=== PATIENT | female | born 1960 | race Caucasian/White ===

== ENCOUNTER → 2016-08-24 | Outpatient (CLI) | payer OTHER ==
[~2016-08-24] MED LIST: CIPR-255 PO; IBUP-1428 PO
--- NOTE | 2016-08-24 13:03 | DIAGNOSTIC IMAGING REPORT ---
RIGHT FOOT MIN 3 VIEWS ROUTINE CLINICAL HISTORY: Right foot pain COMPARISON: None. DISCUSSION: No fractures or dislocations are visualized. There are no erosive or destructive changes. There is a plantar calcaneal spur. IMPRESSION: 1. No acute fractures 2. Plantar calcaneal spur Electronically signed by: Sherwin Reardon M.D. 08/24/2016 1:02 PM Dictated Date/Time: 08/24/2016 1:01 PM
== END | disposition home or self-care (01) ==
LOC: C.RAD1850 11:00
PROVIDERS: ATTEND Physician Assistant
DX: M79.671 Pain in right foot (principal); M77.31 Calcaneal spur, right foot

== ENCOUNTER → 2016-09-03 | Outpatient (CLI) | payer OTHER ==
--- NOTE | 2016-09-04 12:36 | MAMMOGRAPHY REPORT ---
BILATERAL DIGITAL SCREENING MAMMOGRAM TOMOSYNTHESIS WITH CAD: 09/03/2016 CLINICAL HISTORY: Routine screening. Patient has no complaints. TECHNIQUE: Breast tomosynthesis in addition to standard 2D mammography was performed. Current study was also evaluated with a Computer Aided Detection (CAD) system. COMPARISON: Comparison is made to exams dated: 04/28/2012 mammogram, 04/23/2011 mammogram, 04/22/2010 mammogram, 04/10/2009 mammogram - [facility], 04/09/2008, and 07/23/2004 mammogram - [facility]. BREAST COMPOSITION: There are scattered areas of fibroglandular density in both breasts. FINDINGS: No suspicious masses, calcifications, or areas of architectural distortion are noted in e ither breast. There has been no significant interval change compared to prior exams. IMPRESSION: ACR BI-RADS CATEGORY 1: NEGATIVE There is no mammographic evidence of malignancy. A 1 year screening mammogram is recommended. The p atient will receive written notification of the results. Approximately 10% of breast cancers are not detected with mammography. A negative mammographic repor t should not delay biopsy if a clinically suggestive mass is present. Gege Clifford M.D. ah/:09/04/2016 07:13:30 Cv Tech: Tawnya CAMPBELLR M, [facility] letter sent: Normal 1/2 BI-RADS Code: ACR BI-RADS Category 1: Negative
== END | disposition home or self-care (01) ==
LOC: C.MAMM 12:59
PROVIDERS: ATTEND Physician Assistant
DX: Z12.31 Encounter for screening mammogram for malignant neoplasm of breast (principal)

== ENCOUNTER → 2017-01-08 | Outpatient (CLI) | payer OTHER | END | disposition home or self-care (01) | LOC: C.PAPS 07:46 | PROVIDERS: ATTEND Physician Assistant | DX: Z01.419 Encounter for gynecological examination (general) (routine) without abnormal findings (principal) ==

== ENCOUNTER → 2017-01-08 | Outpatient (CLI) | payer OTHER | END | disposition home or self-care (01) | LOC: C.LABSPEC 08:37 | PROVIDERS: ATTEND Physician Assistant | DX: R30.0 Dysuria (principal) ==

== ENCOUNTER → 2017-05-11 | Outpatient (CLI) | payer OTHER ==
[2017-05-11 10:33] LABS: ALKALINE PHOSPHATASE 117 U/L (45-117); ALT/SGPT 103 U/L (12-78); AST/SGOT 50 U/L (15-37); CHOLESTEROL 148 mg/dl (0-200); CHOLESTEROL/HDL RATIO 2.9; HDL CHOLESTEROL 51 mg/dl; LDL CHOLESTEROL CALCULATED 84 mg/dl; TRIGLYCERIDES 66 mg/dl (0-150); VERY LOW DENSITY LIPOPROT CALC 13 mg/dl
[2017-05-11 10:39] LABS: BLOOD UREA NITROGEN 15 mg/dl (7-18); BUN/CREATININE RATIO 20.1 (10-20); CARBON DIOXIDE 30 mmol/L (21-32); CHLORIDE 103 mmol/L (98-107); CREATININE 0.75 mg/dl (0.60-1.20); GLUCOSE 98 mg/dl (70-99); POTASSIUM 4.3 mmol/L (3.5-5.1); SODIUM 135 mmol/L (136-145)
== END | disposition home or self-care (01) ==
LOC: C.LAB1850 09:17
PROVIDERS: ATTEND Internal Medicine
DX: Z13.220 Encounter for screening for lipoid disorders (principal); K76.0 Fatty (change of) liver, not elsewhere classified; Z13.1 Encounter for screening for diabetes mellitus

== ENCOUNTER 2023-09-07 12:15 | Inpatient (IN) ==
--- NOTE | 2023-09-07 12:42 | Emergency Department Note ---
History of Present Illness General Chief complaint: Chest Pain Stated complaint: CHEST PAIN, REF BY DOC Time Seen by Provider: 09/07/23 12:21 History of Present Illness Maximum Pain Intensity: 2 This is a 63-year-old female that presents to the emergency department via private vehicle with complaints of "chest pain". The patient notes that yesterday while hiking around 10:30 AM she began with chest pain. This does seem to be exertional. She states that when she finished the hiking she felt flushed, and then noticed the heaviness across the chest region. She also feels some anxiety with this. Current pain 08/31. No history of similar. She also felt some shortness of breath. No preceding fevers, chills, nausea or vomiting. She does note some discomfort in the bilateral jaws. Also notes discomfort in the bilateral anterior shoulders. No pain radiating into the back. She does note recent ED visit here this past Wednesday for UTI and is taking the antibiotics as prescribed. She has been taking cephalexin. She denies any history of SC or PE. She notes that she slept well last night and woke up today thinking that her symptoms had resolved but unfortunately they have not returned. The pain is intermittent and seems to last for variable durations. She also feels her heart rate is elevated during the time where the pain is present. Home Medications Medication Instructions Recorded Confirmed Type prochlorperazine maleate 5 mg 5 mg PO UD PRN Nausea 08/27/20 09/07/23 History tablet (Compazine) albuterol sulfate 90 mcg/actuation 2 puff inhalation Q4H PRN 01/12/23 09/07/23 Rx aerosol inhaler shortness of breath #6.7 grams Azo Urinary Pain Relief See Rx Instructions .Route 09/04/23 09/07/23 History .COMPLEX PRN Other Tums See Rx Instructions .Route 09/04/23 09/07/23 History .COMPLEX PRN Other cephalexin 500 mg capsule 500 mg PO Q6H 10 days #40 caps 09/04/23 09/07/23 Rx fluticasone 250 mcg-salmeterol 50 1 inh inhalation BID PRN Other 09/04/23 09/07/23 History mcg/dose blistr powdr for inhalation (Wixela Inhub) polyethylene glycol 3350 17 17 g PO DAILY PRN Constipation 09/04/23 09/07/23 History gram/dose oral powder (Miralax) Allergies Allergy/AdvReac Type Severity Reaction Status Date / Time bee venom protein (honey bee) Allergy Severe anaphylaxis Verified 03/01/23 13:31 aspirin Allergy Intermediate HIVES Verified 03/01/23 13:31 Penicillins Allergy Intermediate HIVES Verified 03/01/23 13:31 Sulfa (Sulfonamide Allergy Intermediate HIVES Verified 03/01/23 13:31 Antibiotics) alcohol Allergy Mild "gets Verified 03/01/23 13:31 stuffy and sneezes when she drinks alcohol" erythromycin base Allergy Mild upset Verified 03/01/23 13:31 stomach Past Med/Surg History Medical History Plantar fasciitis Neck tightness Abrasion of skin of left lower leg Epigastric discomfort Screening for lipid disorders Joint pain Gastritis Medical marijuana use Nausea and vomiting after administration of anesthetic agent Lumbar spinal stenosis Osteoarthritis History of kidney stones Hearing deficit Anxiety no meds Colitis Hiatal hernia Fatty liver Acute diverticulitis Left asymmetrical SNHL Tingling of right upper extremity Skin lesion GERD (gastroesophageal reflux disease) Asthma inhalers prn Diverticulitis Surgical History History of cryosurgery on cervix History of decompression of ulnar nerve left hand with carpal tunnel release History of cystoscopy History of umbilical hernia repair History of wisdom tooth extraction Status post correction of deviated nasal septum Family History Sister Hearing loss Breast cancer Family history of reaction to anesthesia Mother Ovarian cancer Diabetes Allergies Breast cancer Family history of reaction to anesthesia Family hx of colon cancer Aunt Breast cancer Father Myocardial infarction Grandmother (Maternal) Myocardial infarction Denies family history of Prostate cancer Social History Smoking Status: Never smoker Second Hand Exposure: No; Do You Dip or Chew Tobacco: No; Hx Alcohol Use: No Hx Substance Use: Yes (medical marijuana) Preferred Language: Sudanese Communication Ability: Effective Visual Impairment: No Limitations Hearing Ability: Use of Hearing Aid Pulp And Paper Tester Required: No Beliefs That Will Affect Care: None marital status: Current Living Situation: Spouse Current Living Situation Comment: Lives with and daughter current occupational status: unemployed Feels Safe at Home: Yes Childhood Exposure to Second-Hand Smoke: No Diet: regular Diet Comment: regular Dental Care, Regularly: Yes Physical Activity Frequency: 3-4 Times per Week Seatbelt Use: always Sunscreen Use: Yes Assistive Devices: Glasses Review of Systems A total of 10 systems reviewed and were otherwise negative Physical Exam Vital Signs Vital Signs - 24 hr 09/07/23 12:17 09/07/23 12:47 09/07/23 13:26 Temperature 36.5 C Temperature Source Temporal Artery Scan Pulse Rate 91 H 72 Pulse Rate [Right Finger] 70 Respiratory Rate 20 16 Respiratory Effort / Characteristics Non-Labored Spontaneous Non-Labored Spontaneous Respiratory Depth Normal Normal Respiratory Pattern Regular Blood Pressure 123/80 Blood Pressure [Left Arm] 104/64 Blood Pressure Mean 94 Blood Pressure Mean [Left Arm] 77 Blood Pressure Position [Left Arm] Semi-fowlers Pulse Oximetry 97 93 Oxygen Delivery Method Room Air Room Air Sepsis Recent Fever Within 48 Hours No Sepsis New/Unexplained Change in Mental Status No Sepsis Action Taken by Nursing No Action Required 09/07/23 14:00 09/07/23 14:30 09/07/23 14:52 Temperature Temperature Source Pulse Rate 74 83 Pulse Rate [Right Finger] 93 H Respiratory Rate 14 16 22 Respiratory Effort / Characteristics Respiratory Depth Respiratory Pattern Blood Pressure 113/78 88/67 L Blood Pressure [Left Arm] 97/69 L Blood Pressure Mean 89 74 Blood Pressure Mean [Left Arm] 78 Blood Pressure Position [Left Arm] Pulse Oximetry 97 96 94 Oxygen Delivery Method Room Air Room Air Room Air Sepsis Recent Fever Within 48 Hours Sepsis New/Unexplained Change in Mental Status Sepsis Action Taken by Nursing 09/07/23 15:06 Temperature Temperature Source Pulse Rate 87 Pulse Rate [Right Finger] Respiratory Rate 22 Respiratory Effort / Characteristics Respiratory Depth Respiratory Pattern Blood Pressure 108/66 Blood Pressure [Left Arm] Blood Pressure Mean 80 Blood Pressure Mean [Left Arm] Blood Pressure Position [Left Arm] Pulse Oximetry 95 Oxygen Delivery Method Room Air Sepsis Recent Fever Within 48 Hours Sepsis New/Unexplained Change in Mental Status Sepsis Action Taken by Nursing VITAL SIGNS - Vital signs and nursing notes were reviewed. Stable and afebrile. GENERAL -63-year-old female appearing her stated age who is in no acute distress. Communicates well with provider and answers questions appropriately. SKIN - Without rashes. No meningeal or petechial rash. HEAD - NC/AT. EYES - PERRL with EOMI bilaterally. Sclera anicteric. EARS - No deformities of external structures noted on gross examination bilaterally. NOSE - Midline and without cyanosis. No epistaxis or purulent drainage noted. MOUTH/OROPHARYNX - Without perioral cyanosis. NECK - Neck with FROM. No nuchal rigidity. LUNGS - Chest wall symmetric without accessory muscle use, intercostals retractions, or central cyanosis. Normal vesicular breath sounds CTA B/L. No wheezes, rales, or rhonchi appreciated. CARDIAC - RRR ABDOMEN - Abdominal contour normal without pulsations or visible masses. BS normoactive all four quadrants. No tenderness, palpable masses, hepatosplenomegaly, or ascites noted. EXTREMITIES - No clubbing or peripheral cyanosis. +5/5 strength noted in UE/LE bilaterally. NEUROLOGIC - Cranial nerves II through XII grossly intact. PSYCH - A&O, and cooperates fully with examiner. Pt is very pleasant and interacts well with examiner. Course Administered Medications Cephalexin HCl (Cephalexin 500 Mg Cap) 500 mg PO QID [facility]; Protocol Stop: 09/15/23 16:59 Last Admin: 09/07/23 18:25 Dose: 500 mg Documented By: ELLIOTT Lactated Ringer's (Lr) 1,000 mls @ 125 mls/hr IV .Q8H EVE Stop: 10/07/23 15:44 Last Admin: 09/07/23 16:15 Dose: 125 mls/hr Documented By: LMM Heparin Sodium/Dextrose (Heparin Sodium/Dextrose) 25,000 units in 500 mls @ 13 mls/hr IV .Q24H EVE; Protocol Stop: 10/07/23 16:59 Last Admin: 09/07/23 18:02 Dose: 650 units/hr, 13 mls/hr Documented By: ELLIOTT Co-signed By: JULIA Nitroglycerin (Nitroglycerin 2% Ointment 30gm Tube) 0.5 inch EXT Q6H EVE Stop: 10/07/23 16:59 Last Admin: 09/07/23 18:26 Dose: 0.5 inch Documented By: MMN Discontinued Medications Clopidogrel Bisulfate (Clopidogrel Bisulfate 300 Mg Tab) 300 mg PO NOW STA Stop: 09/07/23 14:14 Last Admin: 09/07/23 14:25 Dose: 300 mg Documented By: ALVIN Heparin Sodium (Porcine) (Heparin Sod (Porcine) 1000 Unit/Ml) Confirm Administered Dose 1,000 units .ROUTE .STK-MED ONE Stop: 09/07/23 17:55 Last Admin: 09/07/23 18:02 Dose: 3,000 units Documented By: ELLIOTT Co-signed By: TREVIN Heparin Sodium/Dextrose (Heparin Iv Adult Wt-Based Low-Dose W/ Initial Bolus Protocol) 1 each IV Q15M EVE; Protocol Stop: 09/07/23 18:31 Last Admin: 09/07/23 18:27 Dose: Not Given Documented By: Admin: 09/07/23 18:03 Dose: 1 each Documented By: ELLIOTT Heparin Sodium/Dextrose (Heparin 11373 Unit/500 Ml D5w) Confirm Administered Dose 25,000 units IV .STK-MED ONE Stop: 09/07/23 17:55 Last Admin: 09/07/23 18:02 Dose: 650 units Documented By: ELLIOTT Co-signed By: TREVIN Famotidine (Pepcid 20mg Iv Push) 20 mg in 5 mls @ 2.5 mls/min IV NOW STA Stop: 09/07/23 15:17 Last Admin: 09/07/23 15:23 Dose: 2.5 mls/min Documented By: ANGELITA Lactated Ringer's (Lr) 500 mls @ 999 mls/hr IV .Q31M ONE Stop: 09/07/23 17:02 Last Infusion: 09/07/23 17:56 Dose: Infused Documented By: Admin: 09/07/23 17:00 Dose: 999 mls/hr Documented By: ELLIOTT Nitroglycerin (Nitroglycerin 2% Ointment 30gm Tube) 0.5 inch EXT Q6H EVE Stop: 10/07/23 14:59 Last Admin: 09/07/23 15:25 Dose: Not Given Documented By: ANGELITA Nitroglycerin (Nitroglycerin Sl 0.4 Mg/Tab Tab) 0.4 mg SL NOW STA Stop: 09/07/23 14:47 Last Admin: 09/07/23 14:48 Dose: 0.4 mg Documented By: TREVIN Nitroglycerin (Nitroglycerin Sl 0.4 Mg/Tab Tab) Confirm Administered Dose 0.4 mg .ROUTE .STK-MED ONE Stop: 09/07/23 14:49 Last Admin: 09/07/23 14:53 Dose: Not Given Documented By: OAC Medical Decision Making Laboratory Data 09/07/23 13:00 09/07/23 13:00 Lab Results 09/07/23 09/07/23 Range/Units 13:00 15:18 WBC 9.60 (4.8-10.8) K/ul RBC 5.77 H (4.20-5.40) M/uL Hgb 15.5 (12.0-16.0) g/dl Hct 47.4 H (37.0-47.0) % MCV 82.1 (80.0-100.0) fL MCH 26.9 (25.0-34.0) pg MCHC 32.7 (32.0-36.0) g/dL RDW Std Deviation 38.1 (36.4-46.3) fL RDW Coeff of Leah 12.8 (11.5-14.5) % Plt Count 307 (130-400) K/uL MPV 9.0 L (9.4-12.4) fL Immature Gran % (Auto) 0.2 % Neut % (Auto) 51.3 % Lymph % (Auto) 36.8 % [place] % (Auto) 7.5 % Eos % (Auto) 3.4 % Baso % (Auto) 0.8 % Neut # (Auto) 4.92 (1.40-6.50) K/uL Lymph # (Auto) 3.53 H (1.20-3.40) K/uL [place] # (Auto) 0.72 H (0.11-0.59) K/uL Eos # (Auto) 0.33 (0.00-0.50) K/uL Baso # (Auto) 0.08 (0.00-0.20) K/uL Immature Gran # (Auto) 0.02 (0.01-0.20) K/uL PT 10.5 (9.0-12.0) Seconds INR 1.0 (0.9-1.1) APTT 28 (21-31) Seconds PTT Ratio 1.0 D-Dimer 360 (0-500) ug/L FEU Sodium 139 (136-145) mmol/L Potassium 4.0 (3.5-5.1) mmol/L Chloride 105 (98-107) mmol/L Carbon Dioxide 26 (21-32) mmol/L Anion Gap 8 (3-11) BUN 15 (6-23) mg/dl Creatinine 0.75 (0.6-1.2) mg/dl Est Cr Clr Drug Dosing 66.2 ml/min Est GFR ( Amer) 97.6 ml/min Est GFR (Non-Af Amer) 84.2 ml/min BUN/Creatinine Ratio 20.0 (10-20) Glucose 95 (70-99(Fasting)) mg/dl Calcium 9.6 (8.6-10.3) mg/dl Magnesium 2.1 (1.7-2.4) mg/dl Total Bilirubin 0.9 (0.2-1.0) mg/dl AST 27 (13-39) U/L ALT 20 (7-52) U/L Alkaline Phosphatase 87 (34-104) U/L Troponin I High Sens 1031.7 H* 1165.2 H* (0-14) pg/ml B-Natriuretic Peptide 198 H (0-100) pg/ml Total Protein 7.6 (6.0-8.3) gm/dl Albumin 4.6 (3.4-5.0) gm/dl Globulin 3.0 (2.5-4.0) gm/dl Albumin/Globulin Ratio 1.5 (0.9-2) Lipase 41 (11-82) U/L TSH 2.030 (0.300-4.500) uIu/ml Urine Color Yellow Urine Appearance Clear (Clear) Urine pH 6.5 (4.5-7.5) Ur Specific [place] 1.022 (1.000-1.030) Urine Protein Negative (Negative) Urine Glucose (UA) Negative (Negative) Urine Ketones 2+ H (Negative) Urine Blood Negative (Negative) Urine Nitrite Negative (Negative) Urine Bilirubin Negative (Negative) Urine Urobilinogen Negative (Negative) Ur Leukocyte Esterase Negative (Negative) Lyme Disease Screen Negative (Negative) Imaging Data Radiologist's Impression: Chest X-Ray 09/07/23 12:38 SINGLE VIEW CHEST CLINICAL HISTORY: Atypical chest pain. FINDINGS: An AP, portable, upright chest radiograph is compared to study dated 01/08/2014. A hiatal hernia is noted. The cardiomediastinal silhouette is unremarkable. The lungs and pleural spaces are clear. No pneumothorax is seen. The skeletal structures are osteopenic. The bony thorax is grossly intact. IMPRESSION: 1. No active disease in the chest. 2. Hiatal hernia. ACT 112: Negative or not required by law. Electronically signed by: Rell Lisa M.D. 09/07/2023 12:57 PM MDM Narrative Patient was seen and evaluated as above in room B05. Review was performed of triage nursing notes and vital signs. I did review pertinent previous visits and patient history. After obtaining a thorough history and physical examination the above work up was performed. Patient presents to us today for evaluation of chest heaviness with associated dyspnea. She is well-appearing and nontoxic on examination. This started yesterday around 10:30 AM when she was exerting herself while hiking. She has never had this before. She does note recent ED visit where she was diagnosed with a UTI and is currently taking oral cephalexin. She last had a dose earlier this morning. On my assessment she is well-appearing and nontoxic on examination. An EKG was performed at bedside upon my entry into the room revealing normal sinus rhythm at a rate of 74 bpm. QTc 457. QRS 88. There is no ST elevation on this rhythm tracing. Options of care were discussed with the patient. IV access was established. Labs were drawn. I was notified emergently via Drift text at 2 PM on 09/07/2023 about the patient's troponin of 1031.7. I immediately went to the patient's bedside. She was pain-free and resting comfortably. Aspirin was not ordered on arrival as the patient does have stated allergy and experiences hives. I did have our staff then paged the on-call shipping support clerk. At 2:11 PM I spoke with Dr. Vincent. Noting the patient's aspirin allergy he did recommend 300 mg p.o. Plavix x 1 now. Currently waiting on the D-dimer to determine further steps. Labs reveal no leukocytosis or concerning anemia. No emergent metabolic disturbance. D- dimer resulted at 360 and within normal range. BNP ordered and was elevated at 198. TSH reveals euthyroid state. Lipase normal. Urinalysis reveals some ketones but no evidence of infection. We will proceed with inpatient management at this time. Hospitalist then asked that I reach back out to cardiology regarding heparin. I then did Drift message on-call shipping support clerk. In regard to heparin, no recommendations at this time from shipping support clerk. Lyme screen negative. Troponins additionally ordered. Please refer to further documentation regarding her stay. Case was discussed with the attending physician. An order was placed for continuous cardiac monitoring. The monitor shows a rate of 80 with sinus rhythm. GCS: 15 In the evaluation and treatment of this patient, the following differential diagnoses were considered: SC, ASC, Dysrhythmia, Angina, Mediastinitis, GERD, Esophagitis, PE, Pneumonia, Bronchitis, Costochondritis, Rib Fracture, dissection, zoster, among others. Impression & Plan Chest pain, Elevated troponin Discharge Plan Visit Data Chief Complaint: Chest Pain Stated Complaint: CHEST PAIN, REF BY DOC ED Provider: Gretel Skinner ED Midlevel Provider: Fernando Dahl Discharge Problem: Chest pain, Elevated troponin Patient Disposition: Admitted As Inpatient Condition: Good Discharge Instructions Interventions: ED Discharge Assessment Last Done: 09/07/23 16:06
--- NOTE | 2023-09-07 12:59 | XRay Report ---
SINGLE VIEW CHEST CLINICAL HISTORY: Atypical chest pain. FINDINGS: An AP, portable, upright chest radiograph is compared to study dated 01/08/2014. A hiatal he rnia is noted. The cardiomediastinal silhouette is unremarkable. The lungs and pleural spaces are juana ar. No pneumothorax is seen. The skeletal structures are osteopenic. The bony thorax is grossly intac t. IMPRESSION: 1. No active disease in the chest. 2. Hiatal hernia. ACT 112: Negative or not required by law. Electronically signed by: Rell Lisa M.D. 09/07/2023 12:57 PM
[2023-09-07 13:32] LABS: Appearance Urine Clear (Clear); Bilirubin Urine Negative (Negative); Blood Urine Negative (Negative); Color Urine Yellow; Glucose Urine UA Negative (Negative); Ketones Urine 2+ (Negative); Leukocyte Esterase Urine Negative (Negative); Nitrite Urine Negative (Negative); Protein Urine Negative (Negative); Specific Gravity Urine 1.022 (1.000-1.030); Urobilinogen Urine Negative (Negative); pH Urine 6.5 (4.5-7.5)
--- NOTE | 2023-09-07 13:46 | Electrocardiogram Report ---
Test Reason : Blood Pressure : / mmHG Vent. Rate : 074 BPM Atrial Rate : 074 BPM P-R Int : 166 ms QRS Dur : 088 ms QT Int : 412 ms P-R-T Axes : 011 -51 023 degrees QTc Int : 457 ms Normal sinus rhythm Left anterior fascicular block Poor R wave progression, consider anterior WI vs. lead placement vs. LVH Abnormal ECG When compared with ECG of 08-JAN-2014 12:25, No significant change was found Confirmed by Bishop Vincent ([id number]) on 09/07/2023 1:46:02 PM Referred By: REFERRED SELF Confirmed By:Alexander Vincent
[2023-09-07 13:52] LABS: Basophils # (auto) 0.08 K/uL (0.00-0.20); Basophils % (auto) 0.8 %; Eosinophils # (auto) 0.33 K/uL (0.00-0.50); Eosinophils % (auto) 3.4 %; Hematocrit (blood only) 47.4 % (37.0-47.0); Hemoglobin 15.5 g/dl (12.0-16.0); Immature Granulocytes # (auto) 0.02 K/uL (0.01-0.20); Immature Granulocytes % (auto) 0.2 %; Lymphocytes # (auto) 3.53 K/uL (1.20-3.40); Lymphocytes % (auto) 36.8 %; Mean Corpuscular Hemoglobin 26.9 pg (25.0-34.0); Mean Corpuscular Hgb Conc 32.7 g/dL (32.0-36.0); Mean Corpuscular Volume 82.1 fL (80.0-100.0); Monocytes # (auto) 0.72 K/uL (0.11-0.59); Monocytes % (auto) 7.5 %; Neutrophils # (auto) 4.92 K/uL (1.40-6.50); Neutrophils % (auto) 51.3 %; Platelet Count 307 K/uL (130-400); RDW Coefficient of Variation 12.8 % (11.5-14.5); RDW Standard Deviation 38.1 fL (36.4-46.3); Red Blood Count 5.77 M/uL (4.20-5.40)
[2023-09-07 13:53] LABS: Albumin Globulin Ratio 1.5 (0.9-2); Albumin Level 4.6 gm/dl (3.4-5.0); Bilirubin,Total 0.9 mg/dl (0.2-1.0); Calcium 9.6 mg/dl (8.6-10.3); Creatinine Clr Calc Pharmacy 66.2 ml/min; Est GFR (African American) 97.6 ml/min; Est GFR (Non-African American) 84.2 ml/min; Magnesium 2.1 mg/dl (1.7-2.4); Total Protein 7.6 gm/dl (6.0-8.3)
[2023-09-07 14:00] LABS: Troponin I High Sensitivity 1031.7 pg/ml (0-14)
[2023-09-07 14:07] LABS: Thyroid Stimulating Hormone 2.03 uIu/ml (0.300-4.500)
[2023-09-07 14:17] LABS: D Dimer 360 ug/L FEU (0-500); Partial Thromboplastin Time 28 Seconds (21-31); Prothrombin Time 10.5 Seconds (9.0-12.0)
[2023-09-07] MEDS: CLOPIDOGREL BISULFATE 300 MG TAB PO STA (14:25)
--- NOTE | 2023-09-07 14:46 | History & Physical Report ---
Date of Service September 07, 2023 Assessment & Plan (1) Chest pain: Plan: Chest pain Cardiology consulted. Initial troponin 1031, repeat pending EKG normal sinus rhythm with poor R wave progression Patient reports she was chest pressure free, however this returned at around 24/10 intensity at time of hospitalist initial evaluation. Did trial nitro x 1, this did drop her blood pressure into the systolic 80s although she was ports her normal blood pressures usually high 90s and she is very active with no syncopal symptoms with this. Nitro resolved her pain, but did give her headache Patient is allergic to aspirin, received Plavix load No viral prodrome to suggest viral cardiomyopathy. Denies any respiratory symptoms. Last echo 2021 performed for epigastric pain with EF 55 to 60%, grade 1 diastolic dysfunction - Systolic murmur present, do no see prior SM noted on outpatient exams. Repeat echo appears hyperdynamic Subsequent to initial exam and pain resolution pt ambulated to the bathroom, on ambulation patient developed another episode of recurrent chest pain different from anxiety and consistent with her prior pain which then resolved with rest. Troponin also uptrending. Patient heparinized, Nitropaste continued (2) UTI (urinary tract infection): Plan: UTI Can complete course of Keflex 500 mg p.o. every 6 hours. Symptoms improved (3) Asthma: Plan: Asthma Without exacerbation Continue Wixela/formulary equivalent (4) GERD (gastroesophageal reflux disease): Plan: History of GERD EGD 2020: Hiatal hernia, small amount of gastritis Plan DVT prophylaxis: Lovenox Disposition: Medical telemetry CODE STATUS: Full code Diet: Heart healthy History of Present Illness Primary Care Provider: Reji Castrejon MD Maryjane is a 63-year-old female with a past medical history of GERD, UTIs, UTIs, asthma asthma with no history of DVT PE who was being treated as an outpatient for UTI and subsequently felt well, was hiking 1 day ago and developed anterior chest pain. She was seen in the emergency department and found to have a troponin elevation of approximately 1000. EKG with normal sinus rhythm, poor R wave progression, left anterior fascicular block without territorial ST/T wave changes. D-dimer was negative. No chest pain at time of admitting assessment. Creatinine normal. No leukocytosis. Chest x-ray normal. Seen at bedside: Yesterday and walking and took a hike through the mountains. Struggled more on the last hill, and didn't feel well. Heart was racing >100bpm. Had anterior chest pain which calmed down in the evening with rest. 4-6/10 at least in intensity with pressure like quality. Went upstairs and felt short of breath going up the stairs. Pressure in her chest was a bandlike pressure that went into her jaw. Woke up this morning going up steps caused the chest pressure return. Before yesterday had never had chest pressure like this either at rest or with exertion. At time of assessment she feels the pressure is starting to come back a little, was completely pressure free earlier but seems to be coming and going now despite being at rest. She does have a history of GERD, and took two tums but it did not help. Thought it could have been asthma, took two puffs of albuterol which didn't really seem to help Nitro No flu like symptoms COVID UTI sx have improved on outpatient antibiotics. Was here Sat and started PO meds Wednesday. Medical History: Reviewed Medications: Reviewed Surgical History: Reviewed Family history: Reviewed Allergies: Reviewed Social History: no tobacco or etoh Code Status: Full Allergies Allergy/AdvReac Type Severity Reaction Status Date / Time bee venom protein (honey bee) Allergy Severe anaphylaxis Verified 03/01/23 13:31 aspirin Allergy Intermediate HIVES Verified 03/01/23 13:31 Penicillins Allergy Intermediate HIVES Verified 03/01/23 13:31 Sulfa (Sulfonamide Allergy Intermediate HIVES Verified 03/01/23 13:31 Antibiotics) alcohol Allergy Mild "gets Verified 03/01/23 13:31 stuffy and sneezes when she drinks alcohol" erythromycin base Allergy Mild upset Verified 03/01/23 13:31 stomach Home Medications Medication Instructions Recorded Confirmed Type prochlorperazine maleate 5 mg 5 mg PO UD PRN Nausea 08/27/20 09/07/23 History tablet (Compazine) albuterol sulfate 90 mcg/actuation 2 puff inhalation Q4H PRN 01/12/23 09/07/23 Rx aerosol inhaler shortness of breath #6.7 grams Azo Urinary Pain Relief See Rx Instructions .Route 09/04/23 09/07/23 History .COMPLEX PRN Other Tums See Rx Instructions .Route 09/04/23 09/07/23 History .COMPLEX PRN Other cephalexin 500 mg capsule 500 mg PO Q6H 10 days #40 caps 09/04/23 09/07/23 Rx fluticasone 250 mcg-salmeterol 50 1 inh inhalation BID PRN Other 09/04/23 09/07/23 History mcg/dose blistr powdr for inhalation (Wixela Inhub) polyethylene glycol 3350 17 17 g PO DAILY PRN Constipation 09/04/23 09/07/23 History gram/dose oral powder (Miralax) Past Med/Surg History Medical History Plantar fasciitis Neck tightness Abrasion of skin of left lower leg Epigastric discomfort Screening for lipid disorders Joint pain Gastritis Medical marijuana use Nausea and vomiting after administration of anesthetic agent Lumbar spinal stenosis Osteoarthritis History of kidney stones Hearing deficit Anxiety no meds Colitis Hiatal hernia Fatty liver Acute diverticulitis Left asymmetrical SNHL Tingling of right upper extremity Skin lesion GERD (gastroesophageal reflux disease) Asthma inhalers prn Diverticulitis Surgical History History of cryosurgery on cervix History of decompression of ulnar nerve left hand with carpal tunnel release History of cystoscopy History of umbilical hernia repair History of wisdom tooth extraction Status post correction of deviated nasal septum Family History Sister Hearing loss Breast cancer Family history of reaction to anesthesia Mother Ovarian cancer Diabetes Allergies Breast cancer Family history of reaction to anesthesia Family hx of colon cancer Aunt Breast cancer Father Myocardial infarction Grandmother (Maternal) Myocardial infarction Denies family history of Prostate cancer Social History Smoking Status: Never smoker Second Hand Exposure: No; Do You Dip or Chew Tobacco: No; Hx Alcohol Use: No Hx Substance Use: Yes (medical marijuana) Preferred Language: Japanese Communication Ability: Effective Visual Impairment: No Limitations Hearing Ability: Use of Hearing Aid Vending Machine Technician Required: No Beliefs That Will Affect Care: None marital status: Current Living Situation: Spouse Current Living Situation Comment: Lives with and daughter current occupational status: unemployed Feels Safe at Home: Yes Childhood Exposure to Second-Hand Smoke: No Diet: regular Diet Comment: regular Dental Care, Regularly: Yes Physical Activity Frequency: 3-4 Times per Week Seatbelt Use: always Sunscreen Use: Yes Assistive Devices: Glasses Physical Exam Physical Exam: General: A&Ox3. NAD. Cooperative. HEENT: Atraumatic, normocephalic. Vision/hearing grossly intact. Mucous membranes are tacky Pulm: CTAB A&P. -wheezes, -rales, -rhonchi. Symmetrical chest rise. No increased work of breathing. No respiratory distress. Cardiac: RRR, +sm. Radial pulses intact and symmetrical. No JVD Abdominal: Nontender, nondistended, soft. BS present. Ext: warm, dry. Moves all extremities equally. Sensation/strength grossly intact no pitting edema is present Results & Data Results & Data Vital Signs (Past 12 Hours) Vital Signs Temp Pulse Pulse Resp BP BP Pulse Ox 09/07/23 14:00 93 H 14 97/69 L 97 09/07/23 13:26 72 09/07/23 12:47 70 16 104/64 93 09/07/23 12:17 36.5 C 91 H 20 123/80 97 O2 Del Method 09/07/23 14:00 Room Air 09/07/23 13:26 09/07/23 12:47 Room Air 09/07/23 12:17 Room Air PG Care Time/CCT Total # of Minutes Spent Total Time Spent with Patient: Total time spent is greater than 50% in coordination of care (as documented) at patient's floor/unit and/or counseling patient: Coding Level of Care Code 67784 INT INP/OBS CARE 3/75MIN Diagnoses Chest pain R07.9 UTI (urinary tract infection) N30.01 Hematuria presence: with hematuria Urinary tract infection type: acute cystitis Asthma J45.909 GERD (gastroesophageal reflux disease) K21.9 (2) UTI (urinary tract infection) Hematuria presence: with hematuria Urinary tract infection type: acute cystitis Qualified Code(s): N30.01 - Acute cystitis with hematuria
[2023-09-07] MEDS: NITROGLYCERIN SL 0.4 MG/TAB TAB SL STA (14:48)
[2023-09-07] MEDS: NITROGLYCERIN SL 0.4 MG/TAB TAB ONE (14:53)
[2023-09-07] MEDS: FAMOTIDINE 20MG IV PUSH 20 MG/5 ML SYR IV STA (15:23)
[2023-09-07] MEDS: NITROGLYCERIN 2% OINTMENT 30GM TUBE EXT SCH ×2 (15:25→18:26)
[2023-09-07] MEDS ORDERED: NITROGLYCERIN SL 0.4 MG/TAB TAB SL PRN (16:06)
[2023-09-07] MEDS: LACTATED RINGER'S 1,000 ML IV SCH (16:15)
[2023-09-07] MEDS ORDERED: HEPARIN SOD (PORCINE) 1000 UNIT/ML IV ONE (16:48)
--- NOTE | 2023-09-07 16:53 | XCELERA ---
[id number]
[2023-09-07] MEDS: LACTATED RINGER'S 500 ML IV ONE (17:00)
[2023-09-07] MEDS: HEPARIN 25000 UNIT/500 ML D5W IV ONE (18:02)
[2023-09-07] MEDS: HEPARIN SODIUM/DEXTROSE 25,000 UNITS/500 ML BAG IV SCH (18:02)
[2023-09-07] MEDS: HEPARIN SOD (PORCINE) 1000 UNIT/ML ONE (18:02)
[2023-09-07] MEDS: Heparin IV Adult Wt-Based Low-Dose w/ INITIAL Bolus Protocol IV SCH (18:03)
[2023-09-07] MEDS: cephALEXin 500 MG CAP PO SCH (18:25)
[2023-09-07] MEDS ORDERED: HEPARIN SOD 5,000 UNIT/0.5 ML VIAL SQ SCH (22:00)
[2023-09-08] MEDS: ACETAMINOPHEN 325 MG TAB PO PRN (00:19)
[2023-09-08] MEDS: ONDANSETRON INJ 2 MG/ML 2 ML VIAL IV PRN (00:52)
[2023-09-08 00:57] LABS: ANTI-Xa, UFH(UnfractionatedHep 0.34 IU/ml (0.3-0.7)
[2023-09-08 06:31] LABS: Basophils % (auto) 1.3 %; Eosinophils # (auto) 0.45 K/uL (0.00-0.50); Hematocrit (blood only) 39.9 % (37.0-47.0); Hemoglobin 13.2 g/dl (12.0-16.0); Immature Granulocytes # (auto) 0.01 K/uL (0.01-0.20); Immature Granulocytes % (auto) 0.1 %; Lymphocytes % (auto) 45.6 %; Mean Corpuscular Hemoglobin 27.3 pg (25.0-34.0); Mean Corpuscular Hgb Conc 33.1 g/dL (32.0-36.0); Mean Corpuscular Volume 82.6 fL (80.0-100.0); Mean Platelet Volume 8.8 fL (9.4-12.4); Monocytes # (auto) 0.55 K/uL (0.11-0.59); Monocytes % (auto) 7.4 %; Neutrophils # (auto) 2.95 K/uL (1.40-6.50); Neutrophils % (auto) 39.6 %; Platelet Count 242 K/uL (130-400); RDW Coefficient of Variation 12.5 % (11.5-14.5); RDW Standard Deviation 38.3 fL (36.4-46.3); Red Blood Count 4.83 M/uL (4.20-5.40); White Blood Count 7.46 K/ul (4.8-10.8)
[2023-09-08 06:41] LABS: BUN Creatinine Ratio 17.9 (10-20); Calcium 8.9 mg/dl (8.6-10.3); Creatinine Clr Calc Pharmacy 63.7 ml/min; Est GFR (African American) 93.1 ml/min; Est GFR (Non-African American) 80.3 ml/min; Potassium 4.1 mmol/L (3.5-5.1)
[2023-09-08 06:43] LABS: ANTI-Xa, UFH(UnfractionatedHep 0.29 IU/ml (0.3-0.7)
[2023-09-08 06:49] LABS: Troponin I High Sensitivity 349.3 pg/ml (0-14)
[2023-09-08] MEDS: FLUTICASONE/VILANTEROL 200/25MCG 14 PUFFS/INHALER INH SCH (10:21)
[2023-09-08 13:11] LABS: ANTI-Xa, UFH(UnfractionatedHep 0.33 IU/ml (0.3-0.7)
--- NOTE | 2023-09-08 14:32 | Hospitalist Progress Note ---
Date of Service September 08, 2023 Assessment & Plan (1) Chest pain: Plan: Initial troponin 1031, peaked at 1232, now downtrending EKG normal sinus rhythm with poor R wave progression - Received nitro on admission that dropped her BP and caused headache. Continue nitropaste Patient is allergic to aspirin, received Plavix load - Cardiology consulted - plan for heart cath today, 09/07 - continue heparin No chest pain at rest today AM CBC BMP (2) UTI (urinary tract infection): Plan: Can complete course of Keflex 500 mg p.o. every 6 hours. Symptoms improved Last day 09/13 (3) Asthma: Plan: Asthma Without exacerbation Continue Wixela/formulary equivalent (4) GERD (gastroesophageal reflux disease): Plan: History of GERD EGD 2020: Hiatal hernia, small amount of gastritis Plan DVT prophylaxis: heparin Disposition: continued inpatient stay Family updated at bedside Admission and Anticipated Discharge Date Admission Date: September 07, 2023 Subjective Patient resting in bed, many family members present at bedside. Currently just feeling hungry and headache from the nitro. No chest pain at rest. Denies residual UTI symptoms. Review of Systems Review of Systems: All systems reviewed & are unremarkable except as noted in HPI & below Physical Exam Physical Exam: General: NAD, VS as above Resp: normal respiratory effort, lungs clear to auscultation CV: RRR, no murmur, Abd: normal bowel sounds, non tender, no hepatosplenomegaly Extremities: Moves all extremities, no edema Neuro: A&O x3, Results & Data Results & Data Vital Signs (Past 12 Hours) Vital Signs Pulse Pulse Resp BP BP Pulse Ox O2 Del Method 09/08/23 13:20 81 13 94 09/08/23 13:10 84 17 94 09/08/23 13:00 79 19 95 09/08/23 12:50 82 17 94 09/08/23 12:40 103/69 09/08/23 12:40 78 15 94 09/08/23 12:30 80 12 95 09/08/23 12:20 78 15 94 09/08/23 12:10 85 14 93 09/08/23 12:00 75 17 94 09/08/23 11:58 105/74 09/08/23 11:58 86 21 96 09/08/23 11:50 80 17 93 09/08/23 11:40 76 19 96 09/08/23 11:30 72 16 94 09/08/23 11:20 82 20 94 09/08/23 11:18 88 15 96 09/08/23 11:18 114/66 09/08/23 11:10 88 19 94 09/08/23 11:00 85 14 93 09/08/23 10:50 76 15 93 09/08/23 10:43 77 15 102/70 93 Room Air 09/08/23 10:40 82 18 96 09/08/23 10:30 81 17 93 09/08/23 10:20 82 20 94 09/08/23 10:10 81 18 92 09/08/23 10:00 81 22 93 09/08/23 09:57 102/70 09/08/23 09:57 85 28 H 96 09/08/23 09:50 81 20 94 09/08/23 09:40 83 16 92 09/08/23 09:30 81 9 L 92 09/08/23 09:20 81 24 93 09/08/23 09:10 84 19 95 09/08/23 09:00 85 29 H 93 09/08/23 08:50 73 20 96 09/08/23 08:40 92 H 33 H 95 09/08/23 08:30 78 14 94 09/08/23 08:20 78 13 93 09/08/23 08:10 82 19 93 09/08/23 08:00 85 19 95 09/08/23 07:50 82 16 93 09/08/23 07:40 66 12 95 09/08/23 07:30 78 19 94 09/08/23 07:20 86 15 93 09/08/23 07:12 82 09/08/23 07:10 83 19 94 09/08/23 07:00 80 15 91 09/08/23 06:50 63 18 95 09/08/23 06:40 57 L 14 92 09/08/23 06:30 61 12 93 09/08/23 06:20 60 13 94 09/08/23 06:10 82 17 92 09/08/23 06:03 107/64 09/08/23 06:03 72 15 95 09/08/23 06:00 67 13 95 09/08/23 05:50 56 L 16 93 09/08/23 05:40 59 L 18 94 09/08/23 05:30 67 13 96 09/08/23 05:20 79 16 96 09/08/23 05:10 74 13 95 09/08/23 05:07 110/58 L 09/08/23 05:07 85 15 96 09/08/23 05:00 68 15 95 09/08/23 05:00 67 18 110/58 L 98 Room Air Laboratory Results CBC, chemistry and trop reviewed PG Care Time/CCT Total # of Minutes Spent Total Time Spent with Patient: Total time spent is greater than 50% in coordination of care (as documented) at patient's floor/unit and/or counseling patient: Coding Level of Care Code 78369 SUB INP/OBS CARE 2/35MIN Diagnoses Chest pain R07.9 UTI (urinary tract infection) N30.01 Hematuria presence: with hematuria Urinary tract infection type: acute cystitis Asthma J45.909 GERD (gastroesophageal reflux disease) K21.9 (2) UTI (urinary tract infection) Hematuria presence: with hematuria Urinary tract infection type: acute cystitis Qualified Code(s): N30.01 - Acute cystitis with hematuria
[2023-09-08] MEDS: fentaNYL citrate PF 100 MCG/2 ML VIAL ONE (14:54)
[2023-09-08] MEDS: MIDAZOLAM HCL 1 MG/ML 2ML VIAL ONE (14:54)
[2023-09-08] MEDS: niCARdipine HCL INJ 2.5 MG/ML 10 ML AMP ONE (14:54)
[2023-09-08] MEDS: NITROGLYCERIN/D5W 100MCG/ML 20ML SYR ONE (14:55)
[2023-09-08] MEDS: OPTIRAY 350 ONE (14:59)
--- NOTE | 2023-09-08 15:21 | Post Anesthesia Assessment ---
Date of Service September 08, 2023 Post Sedation Assessment Vital Signs Temp Pulse Pulse Resp BP BP Pulse Ox 09/08/23 13:20 81 13 94 09/08/23 13:10 84 17 94 09/08/23 13:00 79 19 95 09/08/23 12:50 82 17 94 09/08/23 12:40 103/69 09/08/23 12:40 78 15 94 09/08/23 12:30 80 12 95 09/08/23 12:20 78 15 94 09/08/23 12:10 85 14 93 09/08/23 12:00 75 17 94 09/08/23 11:58 105/74 09/08/23 11:58 86 21 96 09/08/23 11:50 80 17 93 09/08/23 11:40 76 19 96 09/08/23 11:30 72 16 94 09/08/23 11:20 82 20 94 09/08/23 11:18 88 15 96 09/08/23 11:18 114/66 09/08/23 11:10 88 19 94 09/08/23 11:00 85 14 93 09/08/23 10:50 76 15 93 09/08/23 10:43 77 15 102/70 93 09/08/23 10:40 82 18 96 09/08/23 10:30 81 17 93 09/08/23 10:20 82 20 94 09/08/23 10:10 81 18 92 09/08/23 10:00 81 22 93 09/08/23 09:57 102/70 09/08/23 09:57 85 28 H 96 09/08/23 09:50 81 20 94 09/08/23 09:40 83 16 92 09/08/23 09:30 81 9 L 92 09/08/23 09:20 81 24 93 09/08/23 09:10 84 19 95 09/08/23 09:00 85 29 H 93 09/08/23 08:50 73 20 96 09/08/23 08:40 92 H 33 H 95 09/08/23 08:30 78 14 94 09/08/23 08:20 78 13 93 09/08/23 08:10 82 19 93 09/08/23 08:00 85 19 95 09/08/23 07:50 82 16 93 09/08/23 07:40 66 12 95 09/08/23 07:30 78 19 94 09/08/23 07:20 86 15 93 09/08/23 07:12 82 09/08/23 07:10 83 19 94 09/08/23 07:00 80 15 91 09/08/23 06:50 63 18 95 09/08/23 06:40 57 L 14 92 09/08/23 06:30 61 12 93 09/08/23 06:20 60 13 94 09/08/23 06:10 82 17 92 09/08/23 06:03 107/64 09/08/23 06:03 72 15 95 09/08/23 06:00 67 13 95 09/08/23 05:50 56 L 16 93 09/08/23 05:40 59 L 18 94 09/08/23 05:30 67 13 96 09/08/23 05:20 79 16 96 09/08/23 05:10 74 13 95 09/08/23 05:07 110/58 L 09/08/23 05:07 85 15 96 09/08/23 05:00 68 15 95 09/08/23 05:00 67 18 110/58 L 98 09/08/23 04:50 57 L 16 93 09/08/23 04:40 59 L 14 94 09/08/23 04:30 63 13 98 09/08/23 04:20 60 14 94 09/08/23 04:10 58 L 15 94 09/08/23 04:00 56 L 15 94 09/08/23 03:50 56 L 15 93 09/08/23 03:40 65 15 93 09/08/23 03:30 58 L 14 93 09/08/23 03:20 62 16 94 09/08/23 03:10 59 L 14 93 09/08/23 03:00 58 L 15 94 09/08/23 02:50 58 L 16 93 09/08/23 02:40 63 16 97 09/08/23 02:30 59 L 16 94 09/08/23 02:20 61 15 94 09/08/23 02:10 60 15 94 09/08/23 02:00 69 17 94 09/08/23 01:50 67 23 94 09/08/23 01:40 70 16 96 09/08/23 01:30 67 20 95 09/08/23 01:20 68 20 98 09/08/23 01:10 78 14 98 09/08/23 01:00 70 19 95 09/08/23 01:00 75 18 109/65 98 09/08/23 00:50 73 23 98 09/08/23 00:44 76 16 09/08/23 00:44 109/65 09/08/23 00:31 80/59 L 09/08/23 00:31 69 14 94 09/08/23 00:30 72 15 94 09/08/23 00:30 80/55 L 09/08/23 00:20 78 17 95 09/08/23 00:19 36.8 C 77 18 98/57 L 98 09/08/23 00:10 79 14 95 09/08/23 00:00 98/57 L 09/08/23 00:00 70 18 94 09/07/23 23:50 68 18 94 09/07/23 23:39 79 09/07/23 23:34 68 15 97/65 L 93 09/07/23 23:00 79 22 94/40 L 94 09/07/23 21:30 73 17 113/63 94 09/07/23 19:21 09/07/23 19:18 83 18 96/72 L 94 09/07/23 18:30 85 21 108/69 94 09/07/23 18:23 84 23 102/67 93 09/07/23 18:00 77 17 105/69 95 09/07/23 17:31 81 22 96 09/07/23 17:30 81 16 94/72 L 96 09/07/23 17:00 82 19 95/74 L 94 09/07/23 16:30 79 21 110/75 97 09/07/23 16:20 87 22 96 09/07/23 16:18 76 15 98 09/07/23 16:18 104/70 09/07/23 16:17 81 22 96 09/07/23 16:06 78 20 104/70 97 09/07/23 16:00 74 15 96 09/07/23 16:00 91/62 L 09/07/23 15:50 84 23 95 09/07/23 15:40 76 17 96 09/07/23 15:30 75 19 103/67 95 09/07/23 15:25 86 20 88/63 L 97 Pulse Ox O2 Del Method O2 Del Method 09/08/23 13:20 09/08/23 13:10 09/08/23 13:00 09/08/23 12:50 09/08/23 12:40 09/08/23 12:40 09/08/23 12:30 09/08/23 12:20 09/08/23 12:10 09/08/23 12:00 09/08/23 11:58 09/08/23 11:58 09/08/23 11:50 09/08/23 11:40 09/08/23 11:30 09/08/23 11:20 09/08/23 11:18 09/08/23 11:18 09/08/23 11:10 09/08/23 11:00 09/08/23 10:50 09/08/23 10:43 Room Air 09/08/23 10:40 09/08/23 10:30 09/08/23 10:20 09/08/23 10:10 09/08/23 10:00 09/08/23 09:57 09/08/23 09:57 09/08/23 09:50 09/08/23 09:40 09/08/23 09:30 09/08/23 09:20 09/08/23 09:10 09/08/23 09:00 09/08/23 08:50 09/08/23 08:40 09/08/23 08:30 09/08/23 08:20 09/08/23 08:10 09/08/23 08:00 09/08/23 07:50 09/08/23 07:40 09/08/23 07:30 09/08/23 07:20 09/08/23 07:12 09/08/23 07:10 09/08/23 07:00 09/08/23 06:50 09/08/23 06:40 09/08/23 06:30 09/08/23 06:20 09/08/23 06:10 09/08/23 06:03 09/08/23 06:03 09/08/23 06:00 09/08/23 05:50 09/08/23 05:40 09/08/23 05:30 09/08/23 05:20 09/08/23 05:10 09/08/23 05:07 09/08/23 05:07 09/08/23 05:00 09/08/23 05:00 Room Air 09/08/23 04:50 09/08/23 04:40 09/08/23 04:30 09/08/23 04:20 09/08/23 04:10 09/08/23 04:00 09/08/23 03:50 09/08/23 03:40 09/08/23 03:30 09/08/23 03:20 09/08/23 03:10 09/08/23 03:00 09/08/23 02:50 09/08/23 02:40 09/08/23 02:30 09/08/23 02:20 09/08/23 02:10 09/08/23 02:00 09/08/23 01:50 09/08/23 01:40 09/08/23 01:30 09/08/23 01:20 09/08/23 01:10 09/08/23 01:00 09/08/23 01:00 Room Air 09/08/23 00:50 09/08/23 00:44 09/08/23 00:44 09/08/23 00:31 09/08/23 00:31 09/08/23 00:30 09/08/23 00:30 09/08/23 00:20 09/08/23 00:19 Room Air 09/08/23 00:10 09/08/23 00:00 09/08/23 00:00 09/07/23 23:50 09/07/23 23:39 09/07/23 23:34 Room Air 09/07/23 23:00 Room Air 09/07/23 21:30 Room Air 09/07/23 19:21 94 Room Air 09/07/23 19:18 Room Air 09/07/23 18:30 Room Air 09/07/23 18:23 Room Air 09/07/23 18:00 Room Air 09/07/23 17:31 09/07/23 17:30 Room Air 09/07/23 17:00 Room Air 09/07/23 16:30 Room Air 09/07/23 16:20 09/07/23 16:18 09/07/23 16:18 09/07/23 16:17 04/16/24 16:06 Room Air 09/07/23 16:00 09/07/23 16:00 09/07/23 15:50 09/07/23 15:40 09/07/23 15:30 Room Air 09/07/23 15:25 Recovery Score Activity: Moves 4 extremities Respiration: Deep Breath/Cough Circulation: +/-20% PreAnes Value Consciousness: Fully Awake Oxygen Saturation: > 92% On Room Air Discharge Sedation Level of Care: Fast Track Phase II Post Sedation Plan On clinical assessment, the patient appears to have tolerated the sedation without complications. Patient is recovering as anticipated. Patient will continue to be monitored by nursing and may be discharged when sedation discharge criteria are met per below protocol. Upon Completions of procedure up to 15 minutes continue every 5 minute vital signs and the P.A.R. score; then discharge to a Phase I or Fast Track to Phase II per the following guidelines: * Discharge Patient to appropriate Phase II area if PAR is 8 or greater or return to pre- procedure baseline. The post - procedure orders will be as directed. * If PAR score is less than 8 or not return to pre-procedure baseline then patient will follow Phase I monitoring till PAR is reached for Phase II. The Phase I may be done in procedure room or may call to secure a Phase I area. * If naloxone or flumazenil are used for reversal, hold in Phase I for continued monitoring from when last reversal dose was given for a minimum of 60 minutes or longer pending the nurse and/or physician discretion of patient condition before discharge to Phase II. Please call the Sedation Physician to re-evaluate and complete post-note for discharge to Phase II area. Do NOT discharge from procedure sedation or Phase 1 until post- sedation evaluation note is complete by procedure /sedation MD Sedation Discharge Instructions to be given to the patient at discharge to home. [facility] Procedure Codes (Charges) Indication for Procedure Indication for procedure: NSTEMI Sedation/Anesthesia Procedure 1: Sedation/Anesthesia: 16135 Mod Sedation by the same physician;Init15 Min Child Age 5 & Up (Initial 15 min, start 1431) Total Sedation Time (minutes): 28 Procedure 2: Sedation/Anesthesia: 51008 Mod Sedation by the same physician; Ea [id number] Minutes (Additional 13 min, stop 1459) Total Sedation Time (minutes): 28
--- NOTE | 2023-09-08 15:30 | Cardiac Catheterization ---
[facility] Data: [employer] Cardiac Status Clinical evaluation leading to the procedure CAD Presenation: Non STEMI Anginal Classification: CCS IV Heart Failure: No Cardiogenic Shock within 24 Hours: No Cardiac Arrest within 24 Hours: No Coronary Anatomy Left Main (% Stenosis): Normal LAD (% Stenosis): Normal D1 (% Stenosis): Normal D2 (% Stenosis): Normal Circumflex (% Stenosis): Normal OM1 (% Stenosis): Normal OM2 (% Stenosis): Normal OM3 (% Stenosis): Normal L PL1 (% Stenosis): Normal RCA (% Stenosis): Normal R PDA (% Stenosis): Normal Left Ventricular Angiography EF (%): 65% Mitral Regurgitation: 1+ Diagnostic Physicians Name: Afshin Champagne MD, PhD Closure Device Percutaneous Entry Location: Radial Closure Device: Radial Band Recommendations: Medical Therapy and/or Counseling Cardiac Cath Procedure Full Procedure Date September 08, 2023 Pre-Procedure Diagnosis Pre-Procedure Diagnosis: Non STEMI AUC Score AUC Score: 07 Post-Procedure Diagnosis Post-Procedure Diagnosis: Normal Coronary Arteries Procedure(s) Performed Procedure(s) Performed: Coronary Angiography, Left Heart Cath, LV Angiography and Ultrasound Guided Vascular Access Jeep Mechanic Asfhin Champagne MD, PhD Estimated Blood Loss Estimated Blood Loss: 10 cc Medication(s) Medication(s): Fentanyl, Heparin, Lidocaine 1%, Nicardipine, Nitroglycerin and Versed Summary of Findings Brief description: Patient was brought to the cardiac catheterization suite where she was shaved and prepped in a sterile fashion. Sedated using IV Versed and fentanyl. Soft tissues of the right wrist were anesthetized using 4 mL of 1% Xylocaine. Using ultrasound for guidance (image saved), the right radial artery was accessed and a 6 Colombian radial artery sheath was placed. Patient was provided anticoagulation with IV heparin and antispasmodics including nicardipine and nitroglycerin. All catheters were advanced and exchanged over a 0.035 J-tip wire. Left coronary angiography in orthogonal views with a 5 Colombian [place] 4 diagnostic catheter. Right coronary angiography in orthogonal views with a 5 Colombian [place] 4 diagnostic catheter. Left heart cath and left ventriculogram were performed with a 5 Colombian angled pigtail catheter. Diagnostic catheters were removed. Radial artery sheath was removed. Hemostasis was obtained using the TR band. Patient was hemodynamically stable and asymptomatic. She was returned to the recovery area. This ended the case. Coronary angiography findings: KOL-weazj-wyprwrq vessel bifurcating into LAD and circumflex. No angiographically evident disease. EID-upykc-qdsgmkh and transapical. Gives a large caliber branching first diagonal followed by a medium caliber long second diagonal. At the apex the LAD is tortuous. There is no angiographically evident disease in the LAD or its branches. INz-pnlsi-ftewmlt and nondominant. Travels in the AV groove giving a small OM1, a medium caliber tortuous OM 2 which branches distally, and medium to large caliber tortuous OM 3, and terminates as a large caliber tortuous posterolateral branch. There is no angiographically evident disease in the circumflex or its branches. RCA-medium to large caliber and dominant vessel. Proximal less than 20% stenosis. Mid and distal vessel without disease. It terminates as a long medium caliber PDA. There is no disease in the remainder of the RCA or its branches. LVG-EF 65%. MR 1+ Summary: 1. Normal epicardial coronary arteries 2. Normal LVEF with trivial mitral regurgitation on venogram 3. Continue workup for type II non-ST elevation TN Hemodynamics Rest Ao:: 115/81 mmHg Final Ao: 116/83 mmHg LV: 129/7 mmHg, LVEDP 13 mmHg Recommendations Recommendations: Medical Therapy and/or Counseling Radiation Exposure (mGy) 330 mGy, fluoroscopy time 1.7 minutes Contrast (mls) 52 Anesthesia Versed 1 mg, fentanyl 25 mcg IV. Start 1431, End 1459 Procedural Complication(s) None Disposition [employer]/Recovery I attest to the content of the Intraoperative Record and any orders documented therein. Any exceptions are noted below. [facility] [facility] [place] Codes Cardiac Catheterization Procedure 1: Cardiovascular Cath Procedures: 10487 Coronaries and LHC (+/-LV) Therapeutic Services & Ancillary Procedure 1: Cardiovascular Tx and Anc Procedures: 98784 Ultrasonic Guidance Vascular Access Moderate Sedation Procedure 1: Sedation/Anesthesia: 12877 Mod Sedation by the same physician;Init15 Min Child Age 5 & Up (Initial 15 minutes, start 1431) Procedure 2: Sedation/Anesthesia: 71651 Mod Sedation by the same physician; Ea Zyalvbloxy20 Minutes (Additional 13 minutes, End 1459) PG Care Time/CCT Total # of Minutes Spent Total Time Spent with Patient: Total time spent is greater than 50% in coordination of care (as documented) at patient's floor/unit and/or counseling patient:
--- NOTE | 2023-09-08 17:05 | Cardiology Consultation ---
Date of Consultation September 08, 2023 Assessment & Plan (1) Elevated troponin: Patient underwent cardiac catheterization which did not reveal any significant coronary disease. Therefore this is not an ACS. This is a type II non-ST elevation AK. She does not need medical therapy for coronary artery disease. I suspect the elevated troponin may be secondary to the ongoing urinary tract infection. However, the chest pain certainly was concerning and we do not have an explanation for that at this time. I suppose we cannot exclude a vasospastic episode although we did not see any typical catheter induced vasospasm during catheterization. (2) Chest pain: This is not secondary to ACS. She does have significant GERD and hiatal hernia. She does not take proton pump inhibitor and only takes a lot of Tums. This may contribute to her kidney stones. She really should be on a proton pump inhibitor. She may be having esophageal spasm which can mimic angina. May be worth a trial of amlodipine to reduce esophageal spasm and certainly she should have a GI workup to exclude Rick's esophagus and get her on appropriate therapy. In addition to the esophageal spasm she is at risk for gastritis, esophagitis, and peptic ulcer disease. Thinking about other etiologies of chest pain; her D-dimer was within normal limits so pulmonary embolism seems unlikely. However, it may be reasonable to perform noncontrast CT scan of her chest to evaluate for other pathology and may be even consider evaluation of her aorta although she does not have a lot of risk factors. I will leave those decisions up to the primary team. (3) Mitral regurgitation, acute: Patient's murmur correlates with moderate mitral regurgitation noted on echocardiogram. She also has moderate LVH which could theoretically contribute to elevated troponin. However her EF is normal and there is no other wall motion abnormalities which is consistent with a non-ACS elevation in troponin. Patient will need regular cardiology follow-up for her LVH and mitral regurgitation. History of Present Illness Reason for Consultation: Chest pain, elevated troponin Attending Physician: Matthew Vu MD History of Present Illness 63-year-old female without prior cardiac history presented after she developed sudden onset chest pressure while ambulating uphill near her home. She was recently evaluated and treated for UTI/pyelonephritis. After the initial episode patient had brief recurrent episodes of chest pressure with associated diaphoresis, shortness of breath, and occasionally radiation up to the jaw. She was then seen in the emergency department where her EKG showed normal sinus rhythm with left anterior fascicular block and poor R wave progression consistent with LVH or possible prior anteroseptal AK. Echocardiogram was performed showing normal EF, moderate LVH, grade 1 diastolic dysfunction, moderate mitral regurgitation. Her cardiac troponin was checked and was initially 1031.7, next troponin 1165, third troponin 1233, and 2 subsequent troponins dropped down to 641 and the last at 349. Patient has a history of significant GERD for which she has been taking a lot of Tums. Had been placed on a proton pump inhibitor but this was subsequently just continued. She has had diverticulitis and has a known moderate-sized hiatal hernia. She also has asthma and recently nephrolithiasis with hematuria. Currently, the patient denies any ongoing chest pain but she has not eaten and is hungry and somewhat nauseated after receiving her antibiotics. She denies any shortness of breath at rest, syncope, near syncope, orthopnea, PND, racing heartbeat, palpitations, or edema. She also has a headache from the nitro which was started. She tells me she has a baseline low blood pressure and when she was given nitro her blood pressure dropped further. She voices no other complai nts or concerns at this time. Allergies Allergy/AdvReac Type Severity Reaction Status Date / Time bee venom protein (honey bee) Allergy Severe anaphylaxis Verified 03/01/23 13:31 aspirin Allergy Intermediate HIVES Verified 03/01/23 13:31 Penicillins Allergy Intermediate HIVES Verified 03/01/23 13:31 Sulfa (Sulfonamide Allergy Intermediate HIVES Verified 03/01/23 13:31 Antibiotics) alcohol Allergy Mild "gets Verified 03/01/23 13:31 stuffy and sneezes when she drinks alcohol" erythromycin base Allergy Mild upset Verified 03/01/23 13:31 stomach Home Medications Medication Instructions Recorded Confirmed Type prochlorperazine maleate 5 mg 5 mg PO UD PRN Nausea 08/27/20 09/07/23 History tablet (Compazine) albuterol sulfate 90 mcg/actuation 2 puff inhalation Q4H PRN 01/12/23 09/07/23 Rx aerosol inhaler shortness of breath #6.7 grams Azo Urinary Pain Relief See Rx Instructions .Route 09/04/23 09/07/23 History .COMPLEX PRN Other Tums See Rx Instructions .Route 09/04/23 09/07/23 History .COMPLEX PRN Other cephalexin 500 mg capsule 500 mg PO Q6H 10 days #40 caps 09/04/23 09/07/23 Rx fluticasone 250 mcg-salmeterol 50 1 inh inhalation BID PRN Other 09/04/23 09/07/23 History mcg/dose blistr powdr for inhalation (Wixela Inhub) polyethylene glycol 3350 17 17 g PO DAILY PRN Constipation 09/04/23 09/07/23 History gram/dose oral powder (Miralax) Patient History Medical History Plantar fasciitis Neck tightness Abrasion of skin of left lower leg Epigastric discomfort Screening for lipid disorders Joint pain Gastritis Medical marijuana use Nausea and vomiting after administration of anesthetic agent Lumbar spinal stenosis Osteoarthritis History of kidney stones Hearing deficit Anxiety no meds Colitis Hiatal hernia Fatty liver Acute diverticulitis Left asymmetrical SNHL Tingling of right upper extremity Skin lesion GERD (gastroesophageal reflux disease) Asthma inhalers prn Diverticulitis Surgical History History of cryosurgery on cervix History of decompression of ulnar nerve left hand with carpal tunnel release History of cystoscopy History of umbilical hernia repair History of wisdom tooth extraction Status post correction of deviated nasal septum Family History Sister Hearing loss Breast cancer Family history of reaction to anesthesia nausea Mother Ovarian cancer Diabetes Allergies Breast cancer Family history of reaction to anesthesia nausea Family hx of colon cancer Aunt Breast cancer Father Myocardial infarction Grandmother (Maternal) Myocardial infarction Denies family history of Prostate cancer Social History Smoking Status: Never smoker Second Hand Exposure: No; Do You Dip or Chew Tobacco: No; Hx Alcohol Use: No Hx Substance Use: No Preferred Language: Bulgarian Communication Ability: Effective Visual Impairment: No Limitations Hearing Ability: Use of Hearing Aid Equine Manager Required: No Beliefs That Will Affect Care: None marital status: Current Living Situation: Spouse Current Living Situation Comment: Lives with and daughter current occupational status: unemployed Feels Safe at Home: Yes Childhood Exposure to Second-Hand Smoke: No Diet: regular Diet Comment: regular Dental Care, Regularly: Yes Physical Activity Frequency: 3-4 Times per Week Seatbelt Use: always Sunscreen Use: Yes Assistive Devices: None Review of Systems Review of Systems: Negative except as per HPI Physical Exam Constitutional: WD/WN, vitals as above Eyes: Extraocular muscles intact. Sclera are anicteric. ENMT: Oral mucosa is pink moist and intact Neck: No JVD or bruits Respiratory: Clear to auscultation bilaterally. No wheezing, rhonchi, or rales. Cardiovascular: Regular rate and rhythm. No gallops or rubs. Grade 2 out of 6 systolic murmur. No edema. Musculoskeletal: no cyanosis or clubbing, extremities motor strength 5/5 Neurologic: Cognition is intact. Speech is fluent. No focal deficits. No tremor. Reduced hearing. Psychiatric: A+Ox3, euthymic affect Results & Data Vital Signs (Past 12 Hours) Vital Signs Pulse Pulse Pulse Resp BP BP Pulse Ox 09/08/23 15:40 88 14 99/61 L 95 09/08/23 15:25 82 14 120/81 93 09/08/23 15:10 84 14 124/77 95 09/08/23 13:20 81 13 94 09/08/23 13:10 84 17 94 09/08/23 13:00 79 19 95 09/08/23 12:50 82 17 94 09/08/23 12:40 103/69 09/08/23 12:40 78 15 94 09/08/23 12:30 80 12 95 09/08/23 12:20 78 15 94 09/08/23 12:10 85 14 93 09/08/23 12:00 75 17 94 09/08/23 11:58 105/74 09/08/23 11:58 86 21 96 09/08/23 11:50 80 17 93 09/08/23 11:40 76 19 96 09/08/23 11:30 72 16 94 09/08/23 11:20 82 20 94 09/08/23 11:18 88 15 96 09/08/23 11:18 114/66 09/08/23 11:10 88 19 94 09/08/23 11:00 85 14 93 09/08/23 10:50 76 15 93 09/08/23 10:43 77 15 102/70 93 09/08/23 10:40 82 18 96 09/08/23 10:30 81 17 93 09/08/23 10:20 82 20 94 09/08/23 10:10 81 18 92 09/08/23 10:00 81 22 93 09/08/23 09:57 102/70 09/08/23 09:57 85 28 H 96 09/08/23 09:50 81 20 94 09/08/23 09:40 83 16 92 09/08/23 09:30 81 9 L 92 09/08/23 09:20 81 24 93 09/08/23 09:10 84 19 95 09/08/23 09:00 85 29 H 93 09/08/23 08:50 73 20 96 09/08/23 08:40 92 H 33 H 95 09/08/23 08:30 78 14 94 09/08/23 08:20 78 13 93 09/08/23 08:10 82 19 93 09/08/23 08:00 85 19 95 09/08/23 07:50 82 16 93 09/08/23 07:40 66 12 95 09/08/23 07:30 78 19 94 09/08/23 07:20 86 15 93 09/08/23 07:12 82 09/08/23 07:10 83 19 94 09/08/23 07:00 80 15 91 09/08/23 06:50 63 18 95 09/08/23 06:40 57 L 14 92 09/08/23 06:30 61 12 93 09/08/23 06:20 60 13 94 09/08/23 06:10 82 17 92 09/08/23 06:03 107/64 09/08/23 06:03 72 15 95 09/08/23 06:00 67 13 95 09/08/23 05:50 56 L 16 93 09/08/23 05:40 59 L 18 94 09/08/23 05:30 67 13 96 09/08/23 05:20 79 16 96 09/08/23 05:10 74 13 95 09/08/23 05:07 110/58 L 09/08/23 05:07 85 15 96 09/08/23 05:00 68 15 95 09/08/23 05:00 67 18 110/58 L 98 O2 Del Method 09/08/23 15:40 Room Air 09/08/23 15:25 Room Air 09/08/23 15:10 Room Air 09/08/23 13:20 09/08/23 13:10 09/08/23 13:00 09/08/23 12:50 09/08/23 12:40 09/08/23 12:40 09/08/23 12:30 09/08/23 12:20 09/08/23 12:10 09/08/23 12:00 09/08/23 11:58 09/08/23 11:58 09/08/23 11:50 09/08/23 11:40 09/08/23 11:30 09/08/23 11:20 09/08/23 11:18 09/08/23 11:18 09/08/23 11:10 09/08/23 11:00 09/08/23 10:50 09/08/23 10:43 Room Air 09/08/23 10:40 09/08/23 10:30 09/08/23 10:20 09/08/23 10:10 09/08/23 10:00 09/08/23 09:57 09/08/23 09:57 09/08/23 09:50 09/08/23 09:40 09/08/23 09:30 09/08/23 09:20 09/08/23 09:10 09/08/23 09:00 09/08/23 08:50 09/08/23 08:40 09/08/23 08:30 09/08/23 08:20 09/08/23 08:10 09/08/23 08:00 09/08/23 07:50 09/08/23 07:40 09/08/23 07:30 09/08/23 07:20 09/08/23 07:12 09/08/23 07:10 09/08/23 07:00 09/08/23 06:50 09/08/23 06:40 09/08/23 06:30 09/08/23 06:20 09/08/23 06:10 09/08/23 06:03 09/08/23 06:03 09/08/23 06:00 09/08/23 05:50 09/08/23 05:40 09/08/23 05:30 09/08/23 05:20 09/08/23 05:10 09/08/23 05:07 09/08/23 05:07 09/08/23 05:00 09/08/23 05:00 Room Air PG Care Time/CCT Total # of Minutes Spent Total Time Spent with Patient: Total time spent is greater than 50% in coordination of care (as documented) at patient's floor/unit and/or counseling patient: Coding Level of Care Code 81527 IN/OBS CONSULT LVL 4,60M Diagnoses Elevated troponin R79.89 Chest pain R07.9 Mitral regurgitation, acute I34.0
--- NOTE | 2023-09-08 19:45 | Electrocardiogram Report ---
Test Reason : Blood Pressure : / mmHG Vent. Rate : 094 BPM Atrial Rate : 066 BPM P-R Int : 194 ms QRS Dur : 090 ms QT Int : 458 ms P-R-T Axes : 048 -56 078 degrees QTc Int : 572 ms Poor data quality, interpretation may be adversely affected Normal sinus rhythm Low voltage QRS Left anterior fascicular block Prolonged QT Abnormal ECG When compared with ECG of 07-SEP-2023 12:26, QT has lengthened Confirmed by Bishop Vincent ([id number] on 09/08/2023 7:45:21 PM Referred By: REFERRED SELF Confirmed By:Alexander Vincent
[2023-09-08] MEDS: HEPARIN (PORCINE) 1000 UNIT/ML 10 ML (CATH LAB USE ONLY) ONE (19:52)
[2023-09-08] MEDS: MELATONIN 3 MG TAB PO PRN (21:08)
[2023-09-09 06:45] LABS: BUN Creatinine Ratio 18.5 (10-20); Creatinine Clr Calc Pharmacy 76.2 ml/min; Est GFR (African American) 108.7 ml/min; Est GFR (Non-African American) 93.8 ml/min
[2023-09-09 06:48] LABS: Basophils # (auto) 0.08 K/uL (0.00-0.20); Eosinophils # (auto) 0.63 K/uL (0.00-0.50); Hematocrit (blood only) 39.7 % (37.0-47.0); Hemoglobin 13.7 g/dl (12.0-16.0); Immature Granulocytes # (auto) 0.01 K/uL (0.01-0.20); Immature Granulocytes % (auto) 0.1 %; Lymphocytes # (auto) 2.98 K/uL (1.20-3.40); Lymphocytes % (auto) 37.6 %; Mean Corpuscular Hemoglobin 27.5 pg (25.0-34.0); Mean Corpuscular Hgb Conc 34.5 g/dL (32.0-36.0); Mean Corpuscular Volume 79.7 fL (80.0-100.0); Mean Platelet Volume 8.9 fL (9.4-12.4); Monocytes # (auto) 0.75 K/uL (0.11-0.59); Monocytes % (auto) 9.5 %; Neutrophils # (auto) 3.47 K/uL (1.40-6.50); Neutrophils % (auto) 43.8 %; Platelet Count 240 K/uL (130-400); RDW Coefficient of Variation 12.6 % (11.5-14.5); RDW Standard Deviation 36.1 fL (36.4-46.3); Red Blood Count 4.98 M/uL (4.20-5.40); White Blood Count 7.92 K/ul (4.8-10.8)
--- NOTE | 2023-09-09 11:59 | CT Scan Report ---
CT OF THE CHEST WITHOUT IV CONTRAST CLINICAL HISTORY: SOB, elevated trop, neg cath COMPARISON STUDY: Chest radiograph September 07, 2023. CT DOSE: 339.53 mGy.cm TECHNIQUE: Axial images of the chest were obtained without IV contrast. Images were reviewed in the axial, sagittal, and coronal planes. IV contrast was not administered for this examination. Automat ed exposure control was utilized for the study. A dose lowering technique was utilized adhering to t he principles of ALARA. FINDINGS: No enlarged axillary, mediastinal or hilar lymph nodes are present. The size of the heart is normal. There is a moderate sized hiatal hernia. No pericardial effusion is present. The central a irways are patent. Incidental note is made of aberrant takeoff of the bronchus to the anterior and ap ical segments of the right upper lobe. There is no consolidation to suggest pneumonia. Linear densiti es represent atelectasis. There are no pulmonary nodules. No bronchiectasis is present. There is no h oneycombing. No acute fractures within the bony thorax are noted. 2 mm right renal calculus is incide ntally noted. Upper abdomen is otherwise unremarkable. IMPRESSION: 1. No acute intrathoracic findings. No consolidation to suggest pneumonia. 2. No CT evidence for interstitial lung disease. 3. Moderate sized hiatal hernia. ACT 112: Negative or not required by law. Electronically signed by: Claudy Falcon M.D. 09/09/2023 11:57 AM
--- NOTE | 2023-09-09 14:02 | Discharge Summary ---
Discharge Summary Date of Service September 09, 2023 Notes For Next Care Provider Patient presented to the ER with chest pressure and pain radiating up to the jaw. She did have an elevated troponin, underwent heart catheterization that had no blockages, did show mitral regurgitation and left ventricular hypertrophy. Unclear source of chest pressure, differential includes esophageal spasms, GERD. Chest CT without acute findings, did note moderate hiatal hernia. Discharged today with cardiology and GI follow-up -May be a candidate for amlodipine if having esophageal spasms, will defer this to her GI team -Was not given a prescription for nitroglycerin because of hypotension, with significant hypotension on administration. Advised to seek the ER with any recurrence of symptoms -Continue treatment for UTI -Advised to take PPI for 2 weeks consistently to see if any change in symptoms Medication Changes From Visit None -recommended to stop taking Tums Admission HPI Per Admitting Provider Maryjane is a 63-year-old female with a past medical history of GERD, UTIs, UTIs, asthma asthma with no history of DVT PE who was being treated as an outpatient for UTI and subsequently felt well, was hiking 1 day ago and developed anterior chest pain. She was seen in the emergency department and found to have a troponin elevation of approximately 1000. EKG with normal sinus rhythm, poor R wave progression, left anterior fascicular block without territorial ST/T wave changes. D-dimer was negative. No chest pain at time of admitting assessment. Creatinine normal. No leukocytosis. Chest x-ray normal. Seen at bedside: Yesterday and walking and took a hike through the mountains. Struggled more on the last hill, and didn't feel well. Heart was racing >100bpm. Had anterior chest pain which calmed down in the evening with rest. 4-6/10 at least in intensity with pressure like quality. Went upstairs and felt short of breath going up the stairs. Pressure in her chest was a bandlike pressure that went into her jaw. Woke up this morning going up steps caused the chest pressure return. Before yesterday had never had chest pressure like this either at rest or with exertion. At time of assessment she feels the pressure is starting to come back a little, was completely pressure free earlier but seems to be coming and going now despite being at rest. She does have a history of GERD, and took two tums but it did not help. Thought it could have been asthma, took two puffs of albuterol which didn't really seem to help Nitro No flu like symptoms COVID UTI sx have improved on outpatient antibiotics. Was here Sat and started PO meds Wednesday. Medical History: Reviewed Medications: Reviewed Surgical History: Reviewed Family history: Reviewed Allergies: Reviewed Social History: no tobacco or etoh Code Status: Full Principal Dx & Hospital Course #1 = Principal Diagnosis (1) Chest pain: Initial troponin 1031, peaked at 1232, now downtrending EKG normal sinus rhythm with poor R wave progression - Received nitro on admission that dropped her BP and caused headache. Patient is allergic to aspirin, received Plavix load - Cardiology consulted -Heart cath without any blockage -Elevated troponin not related to ACS or coronary artery disease. Does not need medical management for this -Suspect chest pain may related to GERD/hiatal herniarecommend GI workup and exclude Rick's esophagus -Cardiology follow-up for mitral regurgitation CT chest, without acute findings, no pneumonia or interstitial lung disease. Moderate hiatal hernia No chest pain at rest today, patient ambulated in the halls prior to discharge without recurrence of symptoms (2) UTI (urinary tract infection): Continue Keflex 500 mg p.o. every 6 hours. Symptoms improved Last day 09/13 (3) Asthma: Asthma Without exacerbation Continue Wixelant (4) GERD (gastroesophageal reflux disease): History of GERD EGD 2020: Hiatal hernia, small amount of gastritis -CT scan showing moderate hiatal hernia Plan Dispo: Discharged home today Discussed with family members at bedside Discharge Exam General: NAD, VS as above Resp: normal respiratory effort, lungs clear to auscultation CV: RRR, no murmur, Abd: normal bowel sounds, non tender, no hepatosplenomegaly Extremities: Moves all extremities, no edema Neuro: A&O x3, Updated Medication List Medication Instructions Recorded Confirmed Type prochlorperazine maleate 5 mg 5 mg PO UD PRN Nausea 08/27/20 09/07/23 History tablet (Compazine) albuterol sulfate 90 mcg/actuation 2 puff inhalation Q4H PRN 01/12/23 09/07/23 Rx aerosol inhaler shortness of breath #6.7 grams Azo Urinary Pain Relief See Rx Instructions .Route 09/04/23 09/07/23 History .COMPLEX PRN Other cephalexin 500 mg capsule 500 mg PO Q6H 10 days #40 caps 09/04/23 09/07/23 Rx fluticasone 250 mcg-salmeterol 50 1 inh inhalation BID PRN Other 09/04/23 09/07/23 History mcg/dose blistr powdr for inhalation (Wixela Inhub) polyethylene glycol 3350 17 17 g PO DAILY PRN Constipation 09/04/23 09/07/23 History gram/dose oral powder (Miralax) Hospital Stay Data Consultations 09/07/23 14:37 ED Decision to Admit Stat 09/07/23 16:06 Consult Cardiology Routine Procedures Performed Operation Date: 09/08/23 12:30 Actual Procedures s Cineradiography w/Routine Exam - Afshin Champagne MD, PhD p Cath, Left with Cors and Vent - Afshin Champagne MD, PhD s Ultrasound Vascular Access - Afshin Champagne MD, PhD Diagnostic Imagining Performed Chest X-Ray 09/07/23 12:38 SINGLE VIEW CHEST CLINICAL HISTORY: Atypical chest pain. FINDINGS: An AP, portable, upright chest radiograph is compared to study dated 01/08/2014. A hiatal hernia is noted. The cardiomediastinal silhouette is unremarkable. The lungs and pleural spaces are clear. No pneumothorax is seen. The skeletal structures are osteopenic. The bony thorax is grossly intact. IMPRESSION: 1. No active disease in the chest. 2. Hiatal hernia. ACT 112: Negative or not required by law. Electronically signed by: Rell Lisa M.D. 09/07/2023 12:[address] 09/09/23 10:34 CT OF THE CHEST WITHOUT IV CONTRAST CLINICAL HISTORY: SOB, elevated trop, neg cath COMPARISON STUDY: Chest radiograph September 07, 2023. CT DOSE: 339.53 mGy.cm TECHNIQUE: Axial images of the chest were obtained without IV contrast. Images were reviewed in the axial, sagittal, and coronal planes. IV contrast was not administered for this examination. Automated exposure control was utilized for the study. A dose lowering technique was utilized adhering to the principles of ALARA. FINDINGS: No enlarged axillary, mediastinal or hilar lymph nodes are present. The size of the heart is normal. There is a moderate sized hiatal hernia. No pericardial effusion is present. The central airways are patent. Incidental note is made of aberrant takeoff of the bronchus to the anterior and apical segments of the right upper lobe. There is no consolidation to suggest pneumonia. Linear densities represent atelectasis. There are no pulmonary nodules. No bronchiectasis is present. There is no honeycombing. No acute fractures within the bony thorax are noted. 2 mm right renal calculus is incidentally noted. Upper abdomen is otherwise unremarkable. IMPRESSION: 1. No acute intrathoracic findings. No consolidation to suggest pneumonia. 2. No CT evidence for interstitial lung disease. 3. Moderate sized hiatal hernia. ACT 112: Negative or not required by law. Electronically signed by: Claudy Falcon M.D. 09/09/2023 11:57 AM Pending Results Patient Have Any Pending Studies at Discharge: No Discharge Instructions Given to Patient (Per Discharging Provider) Ms. Perez, Neeraj were hospitalized after having chest pressure and jaw pain. This was accompanied by an elevated troponin level (type II non-ST elevation FL). Because of this, you underwent a heart cath with Dr. Champagne which did not show any blockage. It did show Mitral Regurgitation and left ventricular Hypertrophy for which you should have cardiology follow up. We do not have a firm explanation for your symptoms at this time: - Chest CT did not show any pulmonary abnormalities, did show moderate hiatal hernia - concerns for possible mild rhabdomyolysis due to dehydration - however the labs to test for this were not tested on admission, and we would not be able to prove this. Recommend focus on your hydration - Exacerbated by your GERD and hiatal hernia - continue follow up with GI, you may be having esophageal spams. Recommend trial of continuos PPI (pantoprazole) as we discussed. You may be a candidate for trial of amlodipine for spasms - but I will defer that to your GI team. - Possibly from your UTI - more unlikely, but would recommend that you continue the antibiotics for this. *Sometimes at discharge, patient with similar symptoms are given nitroglycerin to have just in case, however, your blood pressure has been running low and your blood pressure dropped significantly when we gave you the nitroglycerin. It is safer for you not to take this medication and get very low blood pressure - if you have recurrence of symptoms, please return to the ER. You should follow up with: PCP - appointment scheduled as above Cardiology - someone should be contacting you with an appointment, if not their number is above GI - within the next month or so ------ Instructions after heart Cath ACTIVITY RECOMMENDATIONS: Excess manipulation of the wrist should be avoided for the next 24-48 hours. * No lifting over 2 pounds (approximately a 1/2 gallon of milk) with the utilized arm for 24 hours. * No strenuous activity such as bowling or tennis for 3 days. * Keep the site of the procedure covered with a bandage for 24 hours. *You may shower the day after the procedure. Do not take a tub bath or submerge the puncture site in water for the next 3 days. *Do not operate any motorized equipment for 3 days. SPECIAL CARE INSTRUCTIONS: The site may be slightly bruised and sore following your procedure. Should any of the following occur, contact the Dr. who performed your procedure. 1. Redness/inflammation, swelling, chills, or fever, or colored drainage at procedure site within 3-7 days after your procedure. 2. Coldness, discoloration, ongoing numbness, severe pain, or swelling. Expect mild tingling of hand and tenderness at the puncture site for up to three days. If this persists beyond three days, or other symptoms develop, notify the Dr. who performed your procedure. BLEEDING: If the procedure site on your wrist begins to bleed, do not panic 1. Place 1 or 2 fingers firmly just slightly above the insertion site to stop the bleeding. You may be able to feel your pulse as you hold pressure. 2. Lift your finger after 5 minutes to see if the bleeding has stopped. 3. Once the bleeding has stopped, gently wipe the wrist area clean with a bandage. * If the bleeding from your wrist does not stop after 10 minutes, or if there is a large amount of bleeding or spurting, call 911 (do not drive yourself to the hospital). SKIN IRRITATION: * You may experience some redness and/or swelling in the area where radiation was administered. If any skin irritation occurs, please contact your family physician. ----- CONTACT YOUR PRIMARY CARE PROVIDER if you experience any of the following: Shortness of breath or difficulty breathing Fevers or chills Feeling tired with normal activity or experiencing dizziness or fainting Difficulty following your treatment plan, or difficulty taking medications CALL 911 OR GO TO THE EMERGENCY DEPARTMENT if you experience any of the following: Severe abdominal pain or nausea/vomiting Severe chest pain, or chest pain that radiates (moves) to your jaw or arm Sudden, severe shortness of breath or difficulty breathing Thank you for allowing us to participate in your care. Yaritza Olmedo PA-C Total Time Total Time Spent Total Time Spent (In Minutes): Time spend day of discharge 35 minutes including direct patient care, medication reconciliation, documentation, review of labs and images, and coordination of care. Supervising Physician Co-Signing Physician Notes During face to face encounter, I obtained a brief physical examination, discussed hospital stay with patient and discharge instructions with patient. I discussed discharge plan of care with CHRISTINA Olmedo. I reviewed above note and agree with it except for the following: Myocardial infarction type 2 Initial troponin 1031, peaked at 1232, now downtrending EKG normal sinus rhythm with poor R wave progression - Received nitro on admission that dropped her BP and caused headache. Continue nitropaste Patient is allergic to aspirin, received Plavix load - Cardiology consulted - plan for heart cath was clean. _CT P/E protocol was negative. Patient will be discharged with instructions noted above. Coding Level of Care Code 95887 INP/OBS DISCH >30 MIN Diagnoses Chest pain R07.9 UTI (urinary tract infection) N30.01 Hematuria presence: with hematuria Urinary tract infection type: acute cystitis Asthma J45.909 GERD (gastroesophageal reflux disease) K21.9
== END 2023-09-09 15:40 | disposition home or self-care (01) | DRG 391 ==
LOC: ED 12:15 → SUATTDRO 15:23 → EDINP 15:23 → 4W 09-08 16:14
DX: N20.0 Calculus of kidney; K22.4 Dyskinesia of esophagus; J45.909 Unspecified asthma, uncomplicated; Z88.6 Allergy status to analgesic agent; Z88.0 Allergy status to penicillin; M62.82 Rhabdomyolysis; E86.0 Dehydration; K21.9 Gastro-esophageal reflux disease without esophagitis; I34.0 Nonrheumatic mitral (valve) insufficiency; K44.9 Diaphragmatic hernia without obstruction or gangrene; I44.4 Left anterior fascicular block; I21.A1 Myocardial infarction type 2; N39.0 Urinary tract infection, site not specified; Z88.2 Allergy status to sulfonamides; K29.70 Gastritis, unspecified, without bleeding